=== PATIENT | female | born 1985 | race African-American/Black ===

== ENCOUNTER 2018-04-14 15:41 | Inpatient (IN) | payer SELFPAY ==
[~2018-04-14] VITALS: Ht 162.6 cm; Wt 65.3 kg
[2018-04-20] MEDS ORDERED: CARBOPROST TROMETHAMINE 250 MCG/ML AMPUL IM PRN (13:30)
[2018-04-20] MEDS ORDERED: MISOPROSTOL 100MCG TABLET VG PRN (13:30)
[2018-04-20] MEDS ORDERED: NALOXONE HCL 0.4 MG/ML 1ML VIAL IM PRN (13:30)
[2018-04-20] MEDS ORDERED: LIDOCAINE HCL 1% 20ML VIAL (Pyxis) INJ INFIL PRN (13:30)
[2018-04-20] MEDS ORDERED: METHYLERGONOVINE MALEATE 0.2 MG/ML IM PRN (13:30)
[2018-04-20] MEDS: MISOPROSTOL 100MCG TABLET PO SCH ×3 (13:30→22:00)
[2018-04-20] MEDS: LACTATED RINGERS 1,000 ML IV SCH ×2 (13:53→18:09)
[2018-04-20] MEDS: FENTANYL CITRATE/PF 50MCG/ML 2ML VIAL IV PRN (14:03)
[2018-04-20 16:35] LABS: CLARITY URINE CLEAR (CLEAR); COLOR URINE YELLOW (YELLOW); KETONES URINE NEGATIVE (NEGATIVE); LEUKOCYTE ESTERASE URINE NEGATIVE (NEGATIVE); NITRITE URINE NEGATIVE (NEGATIVE); OCCULT BLOOD URINE NEGATIVE (NEGATIVE); PH URINE 6.5 (4.5-8.0); PROTEIN URINE NEGATIVE (NEGATIVE); SPECIFIC GRAVITY URINE 1.007 (1.005-1.030); UROBILINOGEN URINE 0.2 E.U./dL (0.2-1.0)
[2018-04-20 16:47] LABS: BASOPHILS % 0.1 % (0.0-2.0); EOSINOPHILS % 0.1 % (0.0-5.0); HEMATOCRIT. 33.8 % (36.0-48.0); HEMOGLOBIN. 11.7 g/dL (12.0-16.0); LYMPHOCYTES % 17.3 % (20.0-50.0); MEAN CORPUSCULAR HEMOGLOBIN 30.9 pg (28.0-32.0); MEAN CORPUSCULAR VOLUME 89.7 fL (81.0-99.0); MEAN PLATELET VOLUME 9.5 fl (7.4-10.4); MONOCYTES % 5.2 % (2.0-8.0); NEUTROPHILS % 77.3 % (40.0-76.0); PLATELET 131 x1000/uL (130-400); RED BLOOD CELL COUNT 3.77 mill/uL (4.2-5.4); RED CELL DISTRIBUTION WIDTH 14.1 % (11.6-14.6)
[2018-04-20 16:54] LABS: PARTIAL THROMBOPLASTIN TIME 27.3 sec (23.4-31.0)
[2018-04-20 17:03] LABS: *AMPHETAMINES SCREEN URINE NEGATIVE (NEGATIVE); *BARBITURATES SCREEN URINE NEGATIVE (NEGATIVE)
[2018-04-20 17:04] LABS: *BENZODIAZEPINES SCREEN URINE NEGATIVE (NEGATIVE); *COCAINE SCREEN URINE NEGATIVE (NEGATIVE); CANNABINOID URINE SCREEN NEGATIVE (NEGATIVE); METHADONE URINE SCREEN NEGATIVE (NEGATIVE); OPIATES URINE SCREEN NEGATIVE (NEGATIVE)
[2018-04-20 17:05] LABS: PHENCYCLIDINE URINE SCREEN NEGATIVE (NEGATIVE)
[2018-04-20 17:21] LABS: HEPATITIS B SURFACE ANTIGEN NEGATIVE; RUBELLA IGG 169.3 IU/mL (4.99-10)
[2018-04-21] MEDS: LACTATED RINGERS 1,000 ML IV SCH ×3 (00:07→08:23)
[2018-04-21] MEDS: MISOPROSTOL 100MCG TABLET PO SCH ×2 (02:02→06:27)
[2018-04-21] MEDS: FENTANYL CITRATE/PF 50MCG/ML 2ML VIAL IV PRN (06:54)
[2018-04-21] MEDS ORDERED: ONDANSETRON HCL 4MG/2ML VIAL IV NR (07:33)
[2018-04-21] MEDS ORDERED: BUPIVACAINE HCL/NS/PF EPIDURAL 100 ML EP ONE (08:00)
[2018-04-21] MEDS ORDERED: BUPIVACAINE HCL/PF 0.25% (2.5MG/ML) 10ML ONE ×2 (08:00→15:38)
[2018-04-21] MEDS ORDERED: PROPOFOL 200MG/20ML VIAL IV ONE (08:01)
[2018-04-21] MEDS: DEXT 5%/LR + PITOCIN 20UNITS/L 1,000 ML IV SCH ×2 (09:03→18:34)
[2018-04-21] MEDS ORDERED: IBUPROFEN 400MG TABLET PO PRN (17:45)
[2018-04-21] MEDS ORDERED: LANOLIN OINT 0.25 GM TUBE TOP PRN (17:45)
[2018-04-21] MEDS: IBUPROFEN 800MG TABLET PO PRN (18:33)
[2018-04-21] MEDS ORDERED: METHYLERGONOVINE MALEATE 0.2MG TABLET PO SCH (21:00)
[2018-04-21] MEDS: DOCUSATE SODIUM 100MG CAPSULE PO SCH (21:15)
[2018-04-21 21:45] VITALS: BP 107/63
[2018-04-21 22:00] VITALS: BP 108/65
[2018-04-22 06:00] VITALS: BP 105/67
[2018-04-22 06:55] LABS: HEMATOCRIT 23.6 % (36.0-48.0); HEMOGLOBIN 8.2 g/dL (12.0-16.0)
[2018-04-22] MEDS ORDERED: PRENATAL VIT/FE FUMARATE/FA TABLET PO SCH (09:00)
[2018-04-22 09:30] VITALS: BP 107/62
[2018-04-22] MEDS: FERROUS SULFATE 325MG TABLET PO SCH (12:00)
[2018-04-22] MEDS ORDERED: TETANUS, DIPHTHERIA, PERTUSSIS VAC/PF 0.5ML (>7YR OLD) IM ONE (18:30)
[2018-04-22] MEDS: IBUPROFEN 800MG TABLET PO PRN (20:36)
[2018-04-22] MEDS: DOCUSATE SODIUM 100MG CAPSULE PO SCH (20:40)
[2018-04-22 22:00] VITALS: BP 111/73
[2018-04-23 06:00] VITALS: BP 105/71
[2018-04-23 07:40] VITALS: BP 97/56
[2018-04-23] MEDS: FERROUS SULFATE 325MG TABLET PO SCH (08:37)
== END 2018-04-23 11:45 | disposition home or self-care (01) | DRG 560 ==
LOC: L&D 04-20 11:41 → OBSVTOIN 04-20 11:41 → L&D 04-21 07:29 → 7EST PP/OB 04-21 21:04
PROVIDERS: ADMIT Obstetrics & Gynecology Obstetrics; ATTEND Obstetrics & Gynecology Obstetrics
PROC: 3E0R3BZ Introduction of Anesthetic Agent into Spinal Canal, Percutaneous Approach (ICD-10-PCS; 2018-04-21)
PROC: 00HU33Z Insertion of Infusion Device into Spinal Canal, Percutaneous Approach (ICD-10-PCS; 2018-04-21)
PROC: 10907ZC Drainage of Amniotic Fluid, Therapeutic from Products of Conception, Via Natural or Artificial Opening (ICD-10-PCS; 2018-04-21)
PROC: 10E0XZZ Delivery of Products of Conception, External Approach (ICD-10-PCS; principal; 2018-04-21 16:37)
DX: O62.2 Other uterine inertia (principal); O70.0 First degree perineal laceration during delivery; Z37.0 Single live birth; Z3A.41 41 weeks gestation of pregnancy
CPT/HCPCS: 36415; 80305; 81003; 85014; 85018; 85025; 85610; 85730; 86592; 86762; 86850; 86900; 87340; 90715; G0378; J2405; J2590; J2704; J3010; J3490; J7120; A4315